=== PATIENT | female | born 1950 | race Two or more races ===

== ENCOUNTER 2020-09-09 20:18 | Inpatient (IN) | payer MEDICARE, OTHER ==
[~2020-09-09] VITALS: Ht 154.9 cm; Wt 63.0 kg
--- NOTE | 2020-09-09 21:15 | NUR ---
GPS/MANAGER DATA CENTER NOTES: RECEIVED 70 YR. OLD FEMALE ON A 5150 HOLD FOR DTS. PT. A/0 X3. UNCOOPERATIVE. PT. ORIENTED TO UNIT POLICIES, PROTOCOLS AND PROCEDURES. BELONGINGS COUNTED AND LOCKED IN PT. CABINET. NO CONTRABAND FOUND WITH PT. CALL SAGE WITHIN REACH, BED ALARM ON, AND SAFETY ENVIRONMENT OBSERVED. MEDICAL AND PSYCH NOTIFIED OF PT. ADMISSION. WILL CONTINUE TO MONITOR Q 15 MIN FOR SAFETY AND BEHAVIOR.
[2020-09-09] MEDS ORDERED: BLOOD SUGAR DIAGNOSTIC 1 EACH STRIP IN ONE (22:00)
[2020-09-09] MEDS ORDERED: MAGNESIUM HYDROXIDE 30 ML UDC PO PRN (22:00)
[2020-09-09] MEDS ORDERED: MAG HYDROX/AL HYDROX/SIMETH 30 ML UDC PO PRN (22:00)
[2020-09-09] MEDS ORDERED: ROBINUL PO (23:01)
[2020-09-09] MEDS ORDERED: BISA-79 RC (23:01)
[2020-09-09] MEDS ORDERED: SENN-261 PO (23:01)
[2020-09-09] MEDS ORDERED: FERR325T23 PO (23:01)
[2020-09-09] MEDS ORDERED: HYDR-3980 PO (23:01)
[2020-09-09] MEDS ORDERED: LINA290C PO (23:01)
[2020-09-09] MEDS ORDERED: APIX5TAB PO (23:01)
[2020-09-09] MEDS ORDERED: INSU100C10 SQ (23:01)
[2020-09-09] MEDS ORDERED: ENTA200T PO (23:01)
[2020-09-09] MEDS ORDERED: QUET100T PO (23:01)
[2020-09-09] MEDS ORDERED: CARB-300 PO (23:01)
[2020-09-09] MEDS ORDERED: ASCO500T21 PO (23:01)
[2020-09-09] MEDS ORDERED: HYDR-4209 PO (23:01)
[2020-09-09] MEDS ORDERED: NEUPRO (23:01)
[2020-09-09] MEDS ORDERED: FAMO20TA8 PO (23:01)
[2020-09-09] MEDS ORDERED: PREG50CA PO (23:01)
[2020-09-09] MEDS ORDERED: MULT-619 PO (23:01)
[2020-09-09] MEDS ORDERED: ONDA4TAB5 PO (23:01)
[2020-09-09] MEDS ORDERED: DOCU-141 PO (23:01)
[2020-09-09] MEDS ORDERED: ATOR40TA PO (23:01)
[2020-09-09] MEDS ORDERED: APOM10CA7 SQ (23:01)
[2020-09-09] MEDS ORDERED: NPH,100V SQ (23:01)
[2020-09-09] MEDS ORDERED: LISI10TA29 PO (23:01)
[2020-09-09] MEDS ORDERED: DEXTROSE 50%-WATER 50 ML DISP.SYRIN IV PRN (23:30)
[2020-09-09] MEDS ORDERED: BISACODYL (5 MG) 5 MG TABLET.DR PO PRN (23:30)
[2020-09-09] MEDS ORDERED: Medication Not On Formulary EA (Linaclotide (Linzess) 290 MCG) PO SCH (23:30)
[2020-09-09] MEDS ORDERED: DOCUSATE SODIUM 100 MG CAPSULE PO PRN (23:30)
[2020-09-10 00:46] VITALS: BP 113/59
[2020-09-10] MEDS: TEMAZEPAM 7.5 MG CAPSULE PO PRN (01:16)
[2020-09-10] MEDS: LORAZEPAM 0.5 MG TABLET PO PRN ×2 (04:51→12:18)
--- NOTE | 2020-09-10 04:54 | NUR ---
GPS-RN NOTES: ANXIETY PATIENT IS ANXIOUS AND RESTLESS. PRN ATIVAN 0.5MG PO GIVEN. WILL CONTINUE TO MONITOR.
[2020-09-10 07:29] LABS: ALBUMIN 3.4 g/dL (3.4-5.0); BILIRUBIN,TOTAL 0.6 mg/dL (0.2-1.0); CALCIUM, SERUM 9.4 mg/dL (8.5-10.1); CREATININE 0.5 mg/dL (0.6-1.3); POTASSIUM 4.2 mmol/L (3.5-5.1); TOTAL PROTEIN, SERUM 7.5 g/dL (6.4-8.2)
[2020-09-10 07:31] LABS: CHOLESTEROL 120 mg/dL (<200); HDL CHOLESTEROL 46 mg/dL (40-60); LDL 54 mg/dL (0-99); TRIGLYCERIDES 102 mg/dL (30-150)
[2020-09-10] MEDS: BLOOD SUGAR DIAGNOSTIC 1 EACH STRIP VI SCH ×4 (07:46→22:00)
[2020-09-10 08:00] VITALS: BP 115/59
[2020-09-10] MEDS: ENTACAPONE 200 MG TABLET PO SCH ×3 (08:29→16:09)
[2020-09-10] MEDS: SENNOSIDES 8.6 MG TABLET PO SCH ×2 (08:29→21:09)
[2020-09-10] MEDS: FAMOTIDINE (20 MG) 20 MG TABLET PO SCH ×2 (08:31→16:08)
[2020-09-10] MEDS: FERROUS SULFATE (325 MG) 325 MG/TAB TABLET PO SCH (08:31)
[2020-09-10] MEDS: MULTIVIT W/MINERALS 1 TAB TABLET PO SCH (08:31)
[2020-09-10] MEDS: PREGABALIN 25 MG CAPSULE PO SCH (08:31)
[2020-09-10] MEDS: CARBIDOPA/LEVODOPA 25/100 MG 1 UDTAB PO SCH ×3 (08:32→16:08)
[2020-09-10] MEDS: LISINOPRIL (10MG) 10 MG TABLET PO SCH (08:32)
[2020-09-10] MEDS: INSULIN REGULAR, HUMAN 100 UNIT/ML 3 ML VIAL SQ PRN ×3 (08:35→17:20)
[2020-09-10] MEDS: APIXABAN 5 MG TABLET PO SCH ×2 (08:35→16:09)
[2020-09-10] MEDS: ASCORBIC ACID 500 MG TABLET PO SCH (08:37)
--- NOTE | 2020-09-10 12:30 | NUR ---
RN NOTE- patient is anxious and restless, Ativan given PRN.
[2020-09-10 16:00] VITALS: BP 107/72
[2020-09-10] MEDS: busPIRone 5 MG TABLET PO SCH (16:08)
[2020-09-10] MEDS: DULOXETINE HCL 30 MG CAPSULE.DR PO SCH (16:12)
[2020-09-10 20:56] VITALS: BP 138/83
[2020-09-10] MEDS: MIRTAZAPINE 15 MG TABLET PO SCH (21:09)
[2020-09-10] MEDS: ATORVASTATIN 40 MG TABLET PO SCH (21:57)
[2020-09-10] MEDS: *INSULIN REGULAR(HUMULIN R)HUM 100 UNIT/ML VIAL SQ PRN (22:11)
--- NOTE | 2020-09-10 22:17 | NUR ---
GPS RN NOTES PATIENT BLOOD SUGAR 155. GIVEN 2 UNITS OF NSULIN PER SLIDING SCALE. SNACK PROVIDED. WILL CONTINUE TO MONITOR.
[2020-09-11] MEDS: HYDROCODONE/APAP 5/325MG TABLET PO PRN ×3 (06:00→20:48)
--- NOTE | 2020-09-11 06:03 | NUR ---
GPS RN NOTES PATIENT C/O PAIN 10/10 AT LATERAL HIP/THIGH, SURGERY LOCATION. GIVEN NORCO AT THIS TIME PRN.
[2020-09-11] MEDS: BLOOD SUGAR DIAGNOSTIC 1 EACH STRIP VI SCH ×4 (06:40→22:08)
--- NOTE | 2020-09-11 06:41 | NUR ---
GPS RN NOTES PATIENT BS 115 THIS AM. WILL ENDORSE TO MORNING RN. NO INSULIN GIVEN.
[2020-09-11] MEDS: LORAZEPAM 0.5 MG TABLET PO PRN ×2 (06:52→17:56)
--- NOTE | 2020-09-11 06:58 | NUR ---
GPS RN NOTE PATIENT REQUESTING ATIVAN, REPORTING FEELING ANXIOUS, RESTLESS. GIVEN ATIVAN PRN.
--- NOTE | 2020-09-11 07:02 | NUR ---
GPS RN CLOSING NOTE PATIENT IN BED, A/OX3. NO S/S OF DISTRESS. PAIN MANAGED WITH MEDICATION. ALL NEEDS ATTENDED. SCHED MEDS ADMINISTERED. SAFETY KEPT THE WHOLE SHIFT. DID NOT REPORT ANY SUICIDAL IDEATION OR HOMICIDAL IDEATION. NO SIGNIFICANT CHANGE SINCE LAST SHIFT. WILL ENDORSE CARE TO MORNING RN.
[2020-09-11 08:00] VITALS: BP 113/70
[2020-09-11] MEDS: PREGABALIN 25 MG CAPSULE PO SCH (08:08)
[2020-09-11] MEDS: SENNOSIDES 8.6 MG TABLET PO SCH ×2 (08:08→20:20)
[2020-09-11] MEDS: FERROUS SULFATE (325 MG) 325 MG/TAB TABLET PO SCH (08:08)
[2020-09-11] MEDS: ASCORBIC ACID 500 MG TABLET PO SCH (08:08)
[2020-09-11] MEDS: ENTACAPONE 200 MG TABLET PO SCH ×2 (08:08→13:01)
[2020-09-11] MEDS: FAMOTIDINE (20 MG) 20 MG TABLET PO SCH ×2 (08:09→16:28)
[2020-09-11] MEDS: LISINOPRIL (10MG) 10 MG TABLET PO SCH (08:09)
[2020-09-11] MEDS: APIXABAN 5 MG TABLET PO SCH ×2 (08:10→16:34)
[2020-09-11] MEDS: busPIRone 5 MG TABLET PO SCH ×2 (08:32→16:27)
[2020-09-11] MEDS: MULTIVIT W/MINERALS 1 TAB TABLET PO SCH (08:32)
[2020-09-11] MEDS: CARBIDOPA/LEVODOPA 25/100 MG 1 UDTAB PO SCH ×3 (08:32→16:28)
--- NOTE | 2020-09-11 11:54 | NUR ---
WOUND CARE CONSULT: PT PRESENTS WITH SACRAL SCAR AND SURGICAL SCARRING TO RTHIP/THIGH AREA, PRESENT ON ADMISSION. PT IS AMBULATORY WITH ASSISTANCE.RECOMMENDATIONS MADEFOR SKIN PROTECTION. DISCUSSED WITH NURSING STAFF. IN AGREEMENT WITH PLAN OF CARE. Addendum: 09/11/20 at 1155 by RYLAN JOEL RN Amended: Links added. Addendum: 09/11/20 at 1157 by SABRINA LEWIS WNDNU ABOVE WOUND CARE CONSULT WAS DONE BY SABRINA LEWIS RN (WOUND CARE NURSE)
--- NOTE | 2020-09-11 15:46 | NUR ---
Family contact: SW called pts sister Britney Greene ([phone]) regarding pts discharge plan. Pts sister would like pt to be discharged to the convalescent home the clt is currently living at [facility] on [address] [place] [address] ([phone]).
--- NOTE | 2020-09-11 15:56 | NUR ---
Initial discharge plan: Pt is currently living in a convalescent home located on [facility] on [address] [place] [phone] ([phone]). SW will work with the pt and the MD regarding appropriate discharge planning. SW will form a safe and proper discharge.
[2020-09-11 16:00] VITALS: BP 133/68
[2020-09-11] MEDS: DULOXETINE HCL 30 MG CAPSULE.DR PO SCH (16:28)
[2020-09-11] MEDS: *INSULIN REGULAR(HUMULIN R)HUM 100 UNIT/ML VIAL SQ PRN ×2 (18:00→21:10)
--- NOTE | 2020-09-11 20:00 | NUR ---
RN NOTES ALERT/ORIENTED X2, ROOM AIR, ANXIOUS, FALL RISK, S/P RIGHT HIP SURGERY, INCISION INTACT. WITH PARKINSON;S DISEASE, EXAGGERATES LEG MOVEMENT WHEN RN AROUND AND STOPS WHEN ALONE. KEPT SAFE, WILL CONTINUE TO MONITOR.
[2020-09-11] MEDS: MIRTAZAPINE 15 MG TABLET PO SCH (20:20)
[2020-09-11 20:34] VITALS: BP 133/88
--- NOTE | 2020-09-11 20:48 | NUR ---
GPS RN NOTE, PATIENT HAS A COMPLAINT OF CHRONIC RIGHT LEG PAIN AT 7 OUT 10 ON THE PAIN SCALE AND IS REQUESTING NORCO AT THIS TIME. PATIENT VITAL SIGNS ARE STABLE. GAVE NORCO 5 - 325 1 TAB PO Q6HR PRN ORDERED. WILL REASSESS PAIN AND I WILL CONTINUE TO MONITOR THIS PATIENT WITH THE HELP OF STAFF.
[2020-09-11] MEDS: ATORVASTATIN 40 MG TABLET PO SCH (21:05)
[2020-09-11] MEDS: TEMAZEPAM 7.5 MG CAPSULE PO PRN (22:19)
[2020-09-12] MEDS: BLOOD SUGAR DIAGNOSTIC 1 EACH STRIP VI SCH ×4 (06:33→21:28)
[2020-09-12] MEDS: INSULIN REGULAR, HUMAN 100 UNIT/ML 3 ML VIAL SQ PRN ×2 (06:34→13:13)
[2020-09-12 08:00] VITALS: BP 118/63
[2020-09-12] MEDS: FAMOTIDINE (20 MG) 20 MG TABLET PO SCH ×2 (08:03→17:41)
[2020-09-12] MEDS: APIXABAN 5 MG TABLET PO SCH ×2 (08:03→17:46)
[2020-09-12] MEDS: FERROUS SULFATE (325 MG) 325 MG/TAB TABLET PO SCH (08:04)
[2020-09-12] MEDS: MULTIVIT W/MINERALS 1 TAB TABLET PO SCH (08:04)
[2020-09-12] MEDS: SENNOSIDES 8.6 MG TABLET PO SCH ×2 (08:04→21:15)
[2020-09-12] MEDS: LISINOPRIL (10MG) 10 MG TABLET PO SCH (08:04)
[2020-09-12] MEDS: ASCORBIC ACID 500 MG TABLET PO SCH (08:04)
[2020-09-12] MEDS: busPIRone 5 MG TABLET PO SCH ×2 (08:04→17:41)
[2020-09-12] MEDS: CARBIDOPA/LEVODOPA 25/100 MG 1 UDTAB PO SCH ×3 (08:04→17:41)
[2020-09-12] MEDS: Z GUARD REMEDY 2 OZ OINT TP SCH (08:05)
[2020-09-12] MEDS: LORAZEPAM 0.5 MG TABLET PO PRN ×2 (10:08→22:35)
[2020-09-12 16:00] VITALS: BP 99/63
[2020-09-12] MEDS: DULOXETINE HCL 30 MG CAPSULE.DR PO SCH (17:41)
[2020-09-12] MEDS: ENTACAPONE 200 MG TABLET PO SCH (17:42)
[2020-09-12 20:26] VITALS: BP 124/64
[2020-09-12] MEDS: MIRTAZAPINE 15 MG TABLET PO SCH (21:15)
[2020-09-12] MEDS: ATORVASTATIN 40 MG TABLET PO SCH (21:28)
--- NOTE | 2020-09-12 21:54 | NUR ---
RN NOTE PATIENT'S BLOOD SUGAR IS 125 MG/DL, NO SSI COVERAGE NEEDED AT THIS TIME. WILL CONTINUE TO MONITOR. PATIENT IS TAKING GOOD PO INTAKE & TOLERATING WELL.
--- NOTE | 2020-09-12 22:36 | NUR ---
RN NOTE: ANXIETY PATIENT STATED, SHE IS FEELING ANXIOUS, NOTED TO BE RESTLESS WELL. PATIENT REQUESTED TO TAKE ATIVAN AT THIS TIME. PRN ATIVAN 0.5 MG 1 TAB PO ADMINISTERED. WILL CONTINUE TO MONITOR.
[2020-09-13 08:00] VITALS: BP 115/67
[2020-09-13] MEDS: BLOOD SUGAR DIAGNOSTIC 1 EACH STRIP VI SCH ×4 (08:13→22:14)
[2020-09-13] MEDS: APIXABAN 5 MG TABLET PO SCH ×2 (08:35→17:13)
[2020-09-13] MEDS: INSULIN REGULAR, HUMAN 100 UNIT/ML 3 ML VIAL SQ PRN ×2 (08:36→12:08)
[2020-09-13] MEDS: SENNOSIDES 8.6 MG TABLET PO SCH ×2 (08:38→21:21)
[2020-09-13] MEDS: busPIRone 5 MG TABLET PO SCH ×2 (08:38→17:10)
[2020-09-13] MEDS: ENTACAPONE 200 MG TABLET PO SCH ×3 (08:38→17:10)
[2020-09-13] MEDS: CARBIDOPA/LEVODOPA 25/100 MG 1 UDTAB PO SCH ×3 (08:38→17:11)
[2020-09-13] MEDS: FERROUS SULFATE (325 MG) 325 MG/TAB TABLET PO SCH (08:39)
[2020-09-13] MEDS: FAMOTIDINE (20 MG) 20 MG TABLET PO SCH ×2 (08:39→17:10)
[2020-09-13] MEDS: LISINOPRIL (10MG) 10 MG TABLET PO SCH (08:39)
[2020-09-13] MEDS: MULTIVIT W/MINERALS 1 TAB TABLET PO SCH (08:39)
[2020-09-13] MEDS: ASCORBIC ACID 500 MG TABLET PO SCH (08:39)
[2020-09-13] MEDS: Z GUARD REMEDY 2 OZ OINT TP SCH (08:40)
[2020-09-13 16:00] VITALS: BP 108/54
[2020-09-13] MEDS: DULOXETINE HCL 30 MG CAPSULE.DR PO SCH (17:10)
[2020-09-13 20:10] VITALS: BP 107/60
[2020-09-13 21:00] VITALS: BP 107/60
[2020-09-13] MEDS: MIRTAZAPINE 15 MG TABLET PO SCH (21:22)
[2020-09-13] MEDS: ATORVASTATIN 40 MG TABLET PO SCH (21:36)
[2020-09-13 21:50] VITALS: BP 111/63
[2020-09-13] MEDS: *INSULIN REGULAR(HUMULIN R)HUM 100 UNIT/ML VIAL SQ PRN (22:16)
[2020-09-14] MEDS: BLOOD SUGAR DIAGNOSTIC 1 EACH STRIP VI SCH ×4 (07:28→22:32)
[2020-09-14 08:00] VITALS: BP 132/77
[2020-09-14] MEDS: LISINOPRIL (10MG) 10 MG TABLET PO SCH (08:30)
[2020-09-14] MEDS: MULTIVIT W/MINERALS 1 TAB TABLET PO SCH (08:30)
[2020-09-14] MEDS: SENNOSIDES 8.6 MG TABLET PO SCH ×2 (08:30→21:10)
[2020-09-14] MEDS: ENTACAPONE 200 MG TABLET PO SCH ×3 (08:30→16:25)
[2020-09-14] MEDS: busPIRone 5 MG TABLET PO SCH ×2 (08:30→16:26)
[2020-09-14] MEDS: CARBIDOPA/LEVODOPA 25/100 MG 1 UDTAB PO SCH ×3 (08:31→16:26)
[2020-09-14] MEDS: FERROUS SULFATE (325 MG) 325 MG/TAB TABLET PO SCH (08:31)
[2020-09-14] MEDS: FAMOTIDINE (20 MG) 20 MG TABLET PO SCH ×2 (08:31→16:25)
[2020-09-14] MEDS: ASCORBIC ACID 500 MG TABLET PO SCH (08:31)
[2020-09-14] MEDS: APIXABAN 5 MG TABLET PO SCH ×2 (08:32→16:26)
[2020-09-14] MEDS: Z GUARD REMEDY 2 OZ OINT TP SCH (08:33)
--- NOTE | 2020-09-14 09:00 | NUR ---
RN NOTE- PT W SLOW SPEECH, SLOW TO RESPOND, DENIES SI HI AH VH, MED COMPLIANT, DIRECTABLE, CALM
[2020-09-14] MEDS: ARIPIPRAZOLE 2 MG TABLET PO SCH (12:08)
[2020-09-14] MEDS: INSULIN REGULAR, HUMAN 100 UNIT/ML 3 ML VIAL SQ PRN ×2 (12:26→17:23)
[2020-09-14] MEDS: LORAZEPAM 0.5 MG TABLET PO PRN (15:01)
--- NOTE | 2020-09-14 15:03 | NUR ---
RN NOTE- PT W REPORTED ANXIETY, DIFFICULTY BREATHING (CLINICAL HAEMATOLOGIST REPORT). PT VS STABLE- BP- 141/61, HR- 89. RR- 18, SATURATION 100% RA. LUNGS CLEAR. PT W TREMULOUSNESS RELATED TO PARKINSONS. ANXIETY PRESENT. ATIVAN 0.5 MG GIVEN. CONTINUE TO MONITOR
[2020-09-14 16:00] VITALS: BP 144/61
[2020-09-14] MEDS: DULOXETINE HCL 30 MG CAPSULE.DR PO SCH (16:26)
[2020-09-14 20:09] VITALS: BP 90/48
[2020-09-14] MEDS: MIRTAZAPINE 15 MG TABLET PO SCH (21:00)
[2020-09-14 21:15] VITALS: BP 95/54
--- NOTE | 2020-09-14 21:48 | NUR ---
RN NOTE: HELD REMERON AT 2100 PATIENT'S NOTED WITH DECREASED BP 95/54, 83, 20, 97.6, 97% AT RA. HELD REMERON 15 MG AT 2100 TO PREVENT HYPOTENSION. ENCOURAGED PO FLUIDS & SNACKS TOLERATED. WILL CONTINUE TO MONITOR CLOSELY FOR ANY KAREN.
[2020-09-14] MEDS: ATORVASTATIN 40 MG TABLET PO SCH (22:32)
[2020-09-14] MEDS: *INSULIN REGULAR(HUMULIN R)HUM 100 UNIT/ML VIAL SQ PRN (22:37)
[2020-09-15] MEDS: ACETAMINOPHEN 325 MG TABLET PO PRN (03:54)
--- NOTE | 2020-09-15 03:59 | NUR ---
RN NOTE: PRN TYLENOL GIVEN PATIENT C/O HEADACHE & WANTED TO TAKE PAIN MEDICINE. PRN TYLENOL 650 MG PO ADMINISTERED. WILL CONTINUE TO MONITOR FOR ANY CHANGE OF CONDITION.
[2020-09-15] MEDS: BLOOD SUGAR DIAGNOSTIC 1 EACH STRIP VI SCH ×4 (07:35→21:59)
[2020-09-15] MEDS: INSULIN REGULAR, HUMAN 100 UNIT/ML 3 ML VIAL SQ PRN ×3 (07:53→17:19)
[2020-09-15 08:00] VITALS: BP 110/60
[2020-09-15] MEDS: SENNOSIDES 8.6 MG TABLET PO SCH ×2 (08:14→21:48)
[2020-09-15] MEDS: MULTIVIT W/MINERALS 1 TAB TABLET PO SCH (08:14)
[2020-09-15] MEDS: FAMOTIDINE (20 MG) 20 MG TABLET PO SCH ×2 (08:14→16:49)
[2020-09-15] MEDS: CARBIDOPA/LEVODOPA 25/100 MG 1 UDTAB PO SCH ×3 (08:14→16:49)
[2020-09-15] MEDS: busPIRone 5 MG TABLET PO SCH ×2 (08:14→16:49)
[2020-09-15] MEDS: ENTACAPONE 200 MG TABLET PO SCH ×3 (08:14→16:49)
[2020-09-15] MEDS: ARIPIPRAZOLE 2 MG TABLET PO SCH (08:14)
[2020-09-15] MEDS: ASCORBIC ACID 500 MG TABLET PO SCH (08:14)
[2020-09-15] MEDS: APIXABAN 5 MG TABLET PO SCH ×2 (08:15→16:50)
[2020-09-15] MEDS: Z GUARD REMEDY 2 OZ OINT TP SCH (08:15)
[2020-09-15] MEDS: FERROUS SULFATE (325 MG) 325 MG/TAB TABLET PO SCH (08:15)
[2020-09-15] MEDS: LISINOPRIL (10MG) 10 MG TABLET PO SCH (08:16)
--- NOTE | 2020-09-15 09:00 | NUR ---
RN NOTE- NO CHANGES SLOW TO RESPOND, DENIES SI HI AH VH, MED COMPLIANT, DIRECTABLE, CALM
--- NOTE | 2020-09-15 14:55 | NUR ---
Probable Cause Hearing: Pts [phone] hold was upheld for grave disability and danger to herself.
[2020-09-15] MEDS: LORAZEPAM 0.5 MG TABLET PO PRN ×2 (15:13→23:18)
--- NOTE | 2020-09-15 15:13 | NUR ---
RN NOTE- ANXIETY, RESTLESSNESS. ATIVAN 0.5 MG GIVEN
[2020-09-15 16:00] VITALS: BP 106/56
[2020-09-15] MEDS: DULOXETINE HCL 30 MG CAPSULE.DR PO SCH (16:49)
[2020-09-15] MEDS: HYDROCODONE/APAP 5/325MG TABLET PO PRN (18:23)
[2020-09-15 20:26] VITALS: BP 102/63
[2020-09-15] MEDS: ATORVASTATIN 40 MG TABLET PO SCH (21:48)
[2020-09-15] MEDS: MIRTAZAPINE 15 MG TABLET PO SCH (21:48)
[2020-09-15] MEDS: *INSULIN REGULAR(HUMULIN R)HUM 100 UNIT/ML VIAL SQ PRN (22:01)
--- NOTE | 2020-09-15 23:18 | NUR ---
RN NOTE ADMINISTERED PRN ATIVAN 0.5 MG PER PATIENT REQUEST. PATIENT DOES SEEM ANXIOUS AT THIS TIME. WILL CONTINUE TO MONITOR THROUGHOUT SHIFT.
[2020-09-16] MEDS: BLOOD SUGAR DIAGNOSTIC 1 EACH STRIP VI SCH ×4 (07:30→21:59)
[2020-09-16 08:00] VITALS: BP 140/71
[2020-09-16] MEDS: CARBIDOPA/LEVODOPA 25/100 MG 1 UDTAB PO SCH ×3 (09:08→17:00)
[2020-09-16] MEDS: FAMOTIDINE (20 MG) 20 MG TABLET PO SCH ×2 (09:08→17:00)
[2020-09-16] MEDS: FERROUS SULFATE (325 MG) 325 MG/TAB TABLET PO SCH (09:08)
[2020-09-16] MEDS: MULTIVIT W/MINERALS 1 TAB TABLET PO SCH (09:09)
[2020-09-16] MEDS: ASCORBIC ACID 500 MG TABLET PO SCH (09:09)
[2020-09-16] MEDS: LISINOPRIL (10MG) 10 MG TABLET PO SCH (09:09)
[2020-09-16] MEDS: ARIPIPRAZOLE 2 MG TABLET PO SCH (09:10)
[2020-09-16] MEDS: ENTACAPONE 200 MG TABLET PO SCH ×3 (09:10→17:00)
[2020-09-16] MEDS: APIXABAN 5 MG TABLET PO SCH ×2 (09:10→17:00)
[2020-09-16] MEDS: busPIRone 5 MG TABLET PO SCH ×2 (09:10→17:00)
[2020-09-16] MEDS: Z GUARD REMEDY 2 OZ OINT TP SCH (09:11)
[2020-09-16] MEDS: SENNOSIDES 8.6 MG TABLET PO SCH ×2 (09:15→21:05)
[2020-09-16] MEDS: INSULIN REGULAR, HUMAN 100 UNIT/ML 3 ML VIAL SQ PRN ×2 (11:56→18:16)
[2020-09-16] MEDS: LORAZEPAM 0.5 MG TABLET PO PRN (13:44)
--- NOTE | 2020-09-16 13:44 | NUR ---
RN NOTE:PATIENT C/O ANXIETY MEDICATED WITH ATIVAN 0.5MG X1, WILL CONTINUE TO MONITOR .
--- NOTE | 2020-09-16 14:06 | NUR ---
Point of contact: LELIA received a call form pts son Ray Lujan ([phone]). LELIA informed pts son that there is not discharge date. LELIA informed pts son that the discharge plan is to discharge pt back to [facility] on [address] [place] [address] ([phone]). LELIA will keep pts son updated about discharge plan.
--- NOTE | 2020-09-16 14:06 | NUR ---
[facility] contact: LELIA called [facility] on [address] [facility], [place] [address] ([phone]) to discuss pts discharge plan. SW was transferred to admissions and no one answered the phone. LELIA was unable to leave a voicemail. LELIA will follow up with [facility] at a later time.
[2020-09-16 16:09] VITALS: BP 122/65
[2020-09-16] MEDS: DULOXETINE HCL 30 MG CAPSULE.DR PO SCH (17:00)
[2020-09-16] MEDS: *INSULIN REGULAR(HUMULIN R)HUM 100 UNIT/ML VIAL SQ PRN (18:19)
[2020-09-16 20:04] VITALS: BP 106/55
[2020-09-16] MEDS: ATORVASTATIN 40 MG TABLET PO SCH (21:05)
[2020-09-16] MEDS: MIRTAZAPINE 15 MG TABLET PO SCH (21:05)
--- NOTE | 2020-09-16 21:29 | NUR ---
GPS-RN NOTES: PATIENT BLOOD SUGAR WAS 51MG/DL AT 2107. ORANGE JUICE GIVEN, PATIENT TOLERATED WELL. RECHECKED BLOOD SUGAR AT 2128. IT WENT UP TO 71MG/DL. NO S/SX OF HYPOGLYCEMIA NOTED. PATIENT IS ALERT AND ORIENTED. WILL CONTINUE TO MONITOR. Addendum: 09/17/20 at 0211 by ANAHY AUGUSTINE RN ELECTRIC SIGN ASSEMBLER JORDAN AWARE WELL CHARGE NURSE.
[2020-09-17] MEDS: BLOOD SUGAR DIAGNOSTIC 1 EACH STRIP VI SCH ×4 (07:39→21:17)
[2020-09-17] MEDS: INSULIN REGULAR, HUMAN 100 UNIT/ML 3 ML VIAL SQ PRN ×2 (07:41→11:19)
[2020-09-17 08:00] VITALS: BP 129/65
[2020-09-17] MEDS: ARIPIPRAZOLE 2 MG TABLET PO SCH (08:26)
[2020-09-17] MEDS: MULTIVIT W/MINERALS 1 TAB TABLET PO SCH (08:26)
[2020-09-17] MEDS: FAMOTIDINE (20 MG) 20 MG TABLET PO SCH ×2 (08:26→16:39)
[2020-09-17] MEDS: ENTACAPONE 200 MG TABLET PO SCH ×3 (08:27→16:39)
[2020-09-17] MEDS: ASCORBIC ACID 500 MG TABLET PO SCH (08:27)
[2020-09-17] MEDS: FERROUS SULFATE (325 MG) 325 MG/TAB TABLET PO SCH (08:27)
[2020-09-17] MEDS: busPIRone 5 MG TABLET PO SCH ×2 (08:27→16:39)
[2020-09-17] MEDS: CARBIDOPA/LEVODOPA 25/100 MG 1 UDTAB PO SCH ×5 (08:27→21:12)
[2020-09-17] MEDS: Z GUARD REMEDY 2 OZ OINT TP SCH (08:27)
[2020-09-17] MEDS: LISINOPRIL (10MG) 10 MG TABLET PO SCH (08:27)
[2020-09-17] MEDS: SENNOSIDES 8.6 MG TABLET PO SCH ×2 (08:29→21:12)
[2020-09-17] MEDS: APIXABAN 5 MG TABLET PO SCH ×2 (08:30→16:41)
--- NOTE | 2020-09-17 08:43 | NUR ---
RN NOTES CARBIDOPA/LEVODOPA 25MG/100MG AM DOSE ALREADY GIVEN PRIOR TO FREQ ADJUSTMENT BY PHARMACY.
--- NOTE | 2020-09-17 09:25 | NUR ---
[facility] contact: LELIA called [facility] on [address] [facility], [place] [address] ([phone]) and was transferred to the parking garage manager but the SW was unable to make contact. LELIA will make another attempt at a later time.
[2020-09-17] MEDS: LORAZEPAM 0.5 MG TABLET PO PRN (13:12)
--- NOTE | 2020-09-17 13:18 | NUR ---
RN NOTES PATIENT WAS SEEN BY PT TODAY FOR THERAPEUTIC EXERCISES; ASSISTED TO THE BATHROOM NEEDED.
[2020-09-17 16:00] VITALS: BP 91/52
[2020-09-17] MEDS: DULOXETINE HCL 30 MG CAPSULE.DR PO SCH (16:39)
--- NOTE | 2020-09-17 19:30 | NUR ---
GPS RN NOTE, RECEIVED PATIENT AWAKE AND IN BED, NO S/S OR COMPLAINTS OF PAIN AT THIS TIME. PATIENT IS DISPLAYING NO S/S OF APPARENT DISTRESS AT THIS TIME. PATIENT BREATHING IS UNLABORED WITH EQUAL RISE AND FALL OF THE CHEST. PATIENT IS ALERT AND ORIENTED X 1-2 ON ROOM AIR WITH A SPO2 98%. PATIENT IS COMPLIANT WITH MEDICATIONS, ANXIOUS, MAKES NEEDS KNOWN, DISORGANIZED, NEEDS REDIRECTION, AND IS COOPERATIVE. PATIENT DENIES SUICIDAL AND HOMICIDAL IDEATIONS AT THIS TIME. PATIENT ASSISTED WITH TURNING AND REPOSITIONING Q2HR AND PRN FOR COMFORT AND CIRCULATION. PATIENT HAS NO NEEDS AT THIS TIME. PATIENT EDUCATED ON THE USE OF THE CALL LIGHT. PATIENT BED SIDE RAILS UP X 2 FOR SAFETY. PATIENT BED IS LOCKED, LOW, WITH BED ALARM ON. WILL CONTINUE TO MONITOR THIS PATIENT Q15 MINUTES WITH THE HELP OF STAFF TO MAINTAIN SAFETY.
[2020-09-17 20:13] VITALS: BP 101/53
[2020-09-17] MEDS: MIRTAZAPINE 15 MG TABLET PO SCH (21:12)
[2020-09-17] MEDS: ATORVASTATIN 40 MG TABLET PO SCH (21:12)
--- NOTE | 2020-09-17 21:18 | NUR ---
GPS RN NOTE, PERFORMED ACCU CHECK ON PATIENT WITH A BLOOD SUGAR RESULT OF 190. GAVE 3 UNITS OF REGULAR INSULIN PER SLIDING SCALE. GAVE SNACK AND JUICE TO PATIENT WELL. WILL CONTINUE TO MONITOR THIS PATIENT WITH THE HELP OF STAFF.
[2020-09-17] MEDS: *INSULIN REGULAR(HUMULIN R)HUM 100 UNIT/ML VIAL SQ PRN (21:33)
[2020-09-18] MEDS: LORAZEPAM 0.5 MG TABLET PO PRN ×2 (02:52→13:51)
--- NOTE | 2020-09-18 02:52 | NUR ---
GPS RN NOTE, PATIENT HAS A COMPLAINT OF FEELING ANXIOUS AND IS REQUESTING ATIVAN AT THIS TIME. PATIENT VITAL SIGNS ARE STABLE. GAVE ATIVAN 0.5MG PO Q6HR PRN ORDERED. WILL REASSESS FOR ANXIETY AND I WILL CONTINUE TO MONITOR THIS PATIENT WITH THE HELP OF STAFF.
[2020-09-18] MEDS: BLOOD SUGAR DIAGNOSTIC 1 EACH STRIP VI SCH ×4 (07:39→21:14)
[2020-09-18] MEDS: INSULIN REGULAR, HUMAN 100 UNIT/ML 3 ML VIAL SQ PRN ×3 (07:41→17:23)
[2020-09-18 08:00] VITALS: BP 117/72
[2020-09-18] MEDS: busPIRone 5 MG TABLET PO SCH ×2 (08:55→16:11)
[2020-09-18] MEDS: FERROUS SULFATE (325 MG) 325 MG/TAB TABLET PO SCH (08:55)
[2020-09-18] MEDS: SENNOSIDES 8.6 MG TABLET PO SCH ×2 (08:55→21:14)
[2020-09-18] MEDS: FAMOTIDINE (20 MG) 20 MG TABLET PO SCH ×2 (08:55→16:12)
[2020-09-18] MEDS: MULTIVIT W/MINERALS 1 TAB TABLET PO SCH (08:56)
[2020-09-18] MEDS: ARIPIPRAZOLE 2 MG TABLET PO SCH (08:56)
[2020-09-18] MEDS: ASCORBIC ACID 500 MG TABLET PO SCH (08:56)
[2020-09-18] MEDS: CARBIDOPA/LEVODOPA 25/100 MG 1 UDTAB PO SCH ×4 (08:56→21:13)
[2020-09-18] MEDS: ENTACAPONE 200 MG TABLET PO SCH ×3 (08:56→16:10)
[2020-09-18] MEDS: APIXABAN 5 MG TABLET PO SCH ×2 (08:56→16:10)
[2020-09-18] MEDS: LISINOPRIL (10MG) 10 MG TABLET PO SCH (08:57)
--- NOTE | 2020-09-18 09:00 | NUR ---
RN NOTE- PT QUIET, SLOW TO RESPOND, MED COMPLIANT, CONFUSED , ORIENTED TO PERSON PLACE, PO INTAKE GOOD
--- NOTE | 2020-09-18 10:47 | NUR ---
[facility] contact: LELIA called [facility] on [address] [facility], [place] [address] ([phone]) and was unable to speak with admissions. LELIA will make another attempt at a later time.
[2020-09-18] MEDS: Z GUARD REMEDY 2 OZ OINT TP SCH (11:57)
--- NOTE | 2020-09-18 13:53 | NUR ---
RN NOTE- PT W ANXIETY, RESTLESSNESS. ATIVAN 0.5 MG GIVEN
[2020-09-18 15:53] VITALS: BP 99/56
[2020-09-18] MEDS: DULOXETINE HCL 30 MG CAPSULE.DR PO SCH (16:10)
[2020-09-18 20:24] VITALS: BP 108/51
[2020-09-18 20:25] VITALS: BP 108/51
[2020-09-18] MEDS: ATORVASTATIN 40 MG TABLET PO SCH (21:13)
[2020-09-18] MEDS: MIRTAZAPINE 15 MG TABLET PO SCH (21:14)
[2020-09-19] MEDS: LORAZEPAM 0.5 MG TABLET PO PRN (00:54)
[2020-09-19 08:00] VITALS: BP 135/76
[2020-09-19] MEDS: BLOOD SUGAR DIAGNOSTIC 1 EACH STRIP VI SCH ×4 (08:09→22:03)
[2020-09-19] MEDS: MULTIVIT W/MINERALS 1 TAB TABLET PO SCH (08:09)
[2020-09-19] MEDS: SENNOSIDES 8.6 MG TABLET PO SCH ×2 (08:09→21:17)
[2020-09-19] MEDS: ENTACAPONE 200 MG TABLET PO SCH ×3 (08:09→16:08)
[2020-09-19] MEDS: ASCORBIC ACID 500 MG TABLET PO SCH (08:10)
[2020-09-19] MEDS: CARBIDOPA/LEVODOPA 25/100 MG 1 UDTAB PO SCH ×4 (08:10→21:17)
[2020-09-19] MEDS: APIXABAN 5 MG TABLET PO SCH ×2 (08:11→16:07)
[2020-09-19] MEDS: LISINOPRIL (10MG) 10 MG TABLET PO SCH (08:14)
[2020-09-19] MEDS: FAMOTIDINE (20 MG) 20 MG TABLET PO SCH ×2 (08:15→16:07)
[2020-09-19] MEDS: ARIPIPRAZOLE 5 MG TABLET PO SCH (08:15)
[2020-09-19] MEDS: FERROUS SULFATE (325 MG) 325 MG/TAB TABLET PO SCH (08:15)
[2020-09-19] MEDS: busPIRone 5 MG TABLET PO SCH ×2 (08:15→16:08)
[2020-09-19] MEDS: Z GUARD REMEDY 2 OZ OINT TP SCH (08:17)
[2020-09-19] MEDS: HYDROCODONE/APAP 5/325MG TABLET PO PRN (10:43)
[2020-09-19] MEDS: INSULIN REGULAR, HUMAN 100 UNIT/ML 3 ML VIAL SQ PRN (11:44)
[2020-09-19] MEDS: DULOXETINE HCL 30 MG CAPSULE.DR PO SCH (16:08)
[2020-09-19 16:26] VITALS: BP 101/60
[2020-09-19 20:05] VITALS: BP 123/66
[2020-09-19 20:17] VITALS: BP 123/66
[2020-09-19] MEDS: MIRTAZAPINE 15 MG TABLET PO SCH (21:17)
--- NOTE | 2020-09-19 21:39 | NUR ---
RN NOTE: PATIENT'S BLOOD SUGAR LEVEL IS 116 MG/DL, NO SSI COVERAGE NEEDED AT THIS TIME. OFFERED SNACK TO THE PATIENT & TOLERATED WELL. WILL CONTINUE TO MONITOR THE PATIENT FOR ANY KAREN.
[2020-09-19] MEDS: ATORVASTATIN 40 MG TABLET PO SCH (22:03)
[2020-09-20] MEDS: BLOOD SUGAR DIAGNOSTIC 1 EACH STRIP VI SCH ×4 (07:30→21:31)
[2020-09-20 08:00] VITALS: BP 115/61
[2020-09-20] MEDS: FAMOTIDINE (20 MG) 20 MG TABLET PO SCH ×2 (09:00→17:49)
[2020-09-20] MEDS: CARBIDOPA/LEVODOPA 25/100 MG 1 UDTAB PO SCH ×4 (09:00→21:33)
[2020-09-20] MEDS: ARIPIPRAZOLE 5 MG TABLET PO SCH (09:00)
[2020-09-20] MEDS: FERROUS SULFATE (325 MG) 325 MG/TAB TABLET PO SCH (09:00)
[2020-09-20] MEDS: busPIRone 5 MG TABLET PO SCH ×2 (09:00→17:50)
[2020-09-20] MEDS: ENTACAPONE 200 MG TABLET PO SCH ×3 (09:00→17:50)
[2020-09-20] MEDS: MULTIVIT W/MINERALS 1 TAB TABLET PO SCH (09:00)
[2020-09-20] MEDS: SENNOSIDES 8.6 MG TABLET PO SCH ×2 (09:01→21:31)
[2020-09-20] MEDS: ASCORBIC ACID 500 MG TABLET PO SCH (09:01)
[2020-09-20] MEDS: LISINOPRIL (10MG) 10 MG TABLET PO SCH (09:01)
[2020-09-20] MEDS: APIXABAN 5 MG TABLET PO SCH ×2 (09:03→17:50)
[2020-09-20] MEDS: Z GUARD REMEDY 2 OZ OINT TP SCH (09:04)
[2020-09-20] MEDS: INSULIN REGULAR, HUMAN 100 UNIT/ML 3 ML VIAL SQ PRN ×3 (12:47→21:55)
[2020-09-20] MEDS: LORAZEPAM 0.5 MG TABLET PO PRN ×2 (13:21→21:59)
--- NOTE | 2020-09-20 13:22 | NUR ---
RN NOTE:PATIENT MEDICATED WITH ATIVAN0.5MG FOR ANXIETY .WILL CONTINUE TO MONITOR.
[2020-09-20 16:00] VITALS: BP 109/64
[2020-09-20] MEDS: DULOXETINE HCL 30 MG CAPSULE.DR PO SCH (17:48)
[2020-09-20 20:00] VITALS: BP 97/59
[2020-09-20] MEDS: ATORVASTATIN 40 MG TABLET PO SCH (21:31)
[2020-09-20] MEDS: MIRTAZAPINE 15 MG TABLET PO SCH (21:31)
--- NOTE | 2020-09-20 21:59 | NUR ---
PT VERBALIZES ANXIETY/AGITATION AND REQUESTS ATIVAN AT THIS TIME. PRN ATIVAN 0.5MG PRN ADMINISTERED ORDERED. WILL CONT TO MONITOR CLOSELY.
[2020-09-21] MEDS: BLOOD SUGAR DIAGNOSTIC 1 EACH STRIP VI SCH ×4 (07:21→21:53)
[2020-09-21] MEDS: INSULIN REGULAR, HUMAN 100 UNIT/ML 3 ML VIAL SQ PRN ×2 (07:22→11:46)
[2020-09-21 08:00] VITALS: BP 122/65
--- NOTE | 2020-09-21 08:23 | NUR ---
[facility] contact: LELIA called [facility] on [address] [facility], [place] [address] ([phone]) and was unable to speak with admissions. LELIA will make another attempt at a later time.
[2020-09-21] MEDS: busPIRone 5 MG TABLET PO SCH ×2 (08:37→17:41)
[2020-09-21] MEDS: ARIPIPRAZOLE 5 MG TABLET PO SCH (08:37)
[2020-09-21] MEDS: FAMOTIDINE (20 MG) 20 MG TABLET PO SCH ×2 (08:37→17:40)
[2020-09-21] MEDS: ASCORBIC ACID 500 MG TABLET PO SCH (08:37)
[2020-09-21] MEDS: ENTACAPONE 200 MG TABLET PO SCH ×3 (08:37→17:41)
[2020-09-21] MEDS: SENNOSIDES 8.6 MG TABLET PO SCH ×2 (08:37→21:52)
[2020-09-21] MEDS: APIXABAN 5 MG TABLET PO SCH ×2 (08:37→17:40)
[2020-09-21] MEDS: LISINOPRIL (10MG) 10 MG TABLET PO SCH (08:38)
[2020-09-21] MEDS: MULTIVIT W/MINERALS 1 TAB TABLET PO SCH (08:38)
[2020-09-21] MEDS: FERROUS SULFATE (325 MG) 325 MG/TAB TABLET PO SCH (08:38)
[2020-09-21] MEDS: CARBIDOPA/LEVODOPA 25/100 MG 1 UDTAB PO SCH ×4 (08:38→21:53)
[2020-09-21] MEDS: Z GUARD REMEDY 2 OZ OINT TP SCH (08:41)
--- NOTE | 2020-09-21 08:51 | NUR ---
Referral to [facility]: LELIA faxed a referral for [facility] fax #[phone].
--- NOTE | 2020-09-21 09:00 | NUR ---
RN NOTE- PT ALERT ORIENTED TO PERSON PLACE, CONFUSION. DENIES ALL. MED COMPLIANT ,
[2020-09-21] MEDS: LORAZEPAM 0.5 MG TABLET PO PRN (11:17)
--- NOTE | 2020-09-21 11:17 | NUR ---
RN NOTE- PT W ANXIETY. ATIVAN 0.5 MG GIVEN
--- NOTE | 2020-09-21 12:20 | NUR ---
RN NOTE- DECREASED ANXIETY. RX EFFECTIVE
--- NOTE | 2020-09-21 13:53 | NUR ---
Family contact: LELIA called the pts son Ray Lujan ([phone]) and informed him that the pt will be discharged to [facility] the following day and provided him with the location address.
[2020-09-21 16:00] VITALS: BP 102/51
--- NOTE | 2020-09-21 17:30 | NUR ---
RN NOTE- DR VALDES CAME TO UNIT AND ASKED ABOUT SINEMET QID DOSING. YESTERDAY HE ORDERED IT 0600, 1000, 1600, 2000. CURRENTLY BEING GIVEN ON HOSPITAL QID SCHEDULE - 0900, 1300, 1700, 2100. NOTIFIED PHARMACY . WILL START AT DR VALDES SCHEDULE TOMORROW MORNING.
[2020-09-21] MEDS: DULOXETINE HCL 30 MG CAPSULE.DR PO SCH (17:41)
[2020-09-21] MEDS: ACETAMINOPHEN 325 MG TABLET PO PRN (19:28)
[2020-09-21 20:00] VITALS: BP 103/44
[2020-09-21] MEDS: ATORVASTATIN 40 MG TABLET PO SCH (21:52)
[2020-09-21] MEDS: MIRTAZAPINE 15 MG TABLET PO SCH (21:52)
[2020-09-21] MEDS: *INSULIN REGULAR(HUMULIN R)HUM 100 UNIT/ML VIAL SQ PRN (22:05)
[2020-09-22] MEDS: LORAZEPAM 0.5 MG TABLET PO PRN ×2 (03:41→12:27)
--- NOTE | 2020-09-22 03:41 | NUR ---
RN NOTE PATIENT REPORTING ANXIETY. ATIVAN 0.5 MG GIVEN ORDERED. WILL CONTINUE TO MONITOR
[2020-09-22] MEDS: CARBIDOPA/LEVODOPA 25/100 MG 1 UDTAB PO SCH ×2 (06:03→10:36)
--- NOTE | 2020-09-22 06:32 | NUR ---
RN CLOSING NOTES PATIENT SLEEPING IN BED, NO S/S OF DISTRESS OR SOB NOTED, BREATHING EVEN AND UNLABORED. NO COMPLAINTS OF PAIN AT THIS TIME. PT DENIED SI/HI THROUGHOUT SHIFT. PATIENT COMPLIANT WITH MEDICATION. MEDICATIONS GIVEN ORDERED, MEDS CRUSHED WITH APPLESAUCE. PATIENT NEEDS MET THROUGHOUT SHIFT. SAFETY MEASURES AND ASPIRATION PRECAUTIONS IN PLACE, BED LOCKED IN LOWEST POSITION, SIDE RAILS UP X 2, HOB ELEVATED, BED ALARM ON, SAFETY CHECKS Q15 MINS THROUGHOUT SHIFT. WILL ENDORSE TO DAY SHIFT NURSE FOR CONTINUITY OF CARE
[2020-09-22] MEDS: BLOOD SUGAR DIAGNOSTIC 1 EACH STRIP VI SCH ×2 (07:52→11:49)
[2020-09-22 08:00] VITALS: BP 110/69
[2020-09-22] MEDS: busPIRone 5 MG TABLET PO SCH (08:34)
[2020-09-22] MEDS: ARIPIPRAZOLE 5 MG TABLET PO SCH (08:34)
[2020-09-22] MEDS: FAMOTIDINE (20 MG) 20 MG TABLET PO SCH (08:34)
[2020-09-22] MEDS: FERROUS SULFATE (325 MG) 325 MG/TAB TABLET PO SCH (08:34)
[2020-09-22] MEDS: SENNOSIDES 8.6 MG TABLET PO SCH (08:34)
[2020-09-22] MEDS: ENTACAPONE 200 MG TABLET PO SCH ×2 (08:34→13:16)
[2020-09-22] MEDS: MULTIVIT W/MINERALS 1 TAB TABLET PO SCH (08:34)
[2020-09-22] MEDS: ASCORBIC ACID 500 MG TABLET PO SCH (08:34)
[2020-09-22 08:35] VITALS: BP 110/69
[2020-09-22] MEDS: APIXABAN 5 MG TABLET PO SCH (08:35)
[2020-09-22] MEDS: LISINOPRIL (10MG) 10 MG TABLET PO SCH (08:35)
[2020-09-22] MEDS: Z GUARD REMEDY 2 OZ OINT TP SCH (08:40)
--- NOTE | 2020-09-22 09:00 | NUR ---
RN NOTE- PT ALERT ORIENTED TO PERSON PLACE, CONFUSION. DENIES ALL. MED COMPLIANT
--- NOTE | 2020-09-22 09:09 | NUR ---
Discharge Note: Pt will be discharged to [facility] ([facility]) located at [address] [place] [address]; ([phone]). Pt will be transported via [facility] at 1pm. Pts son, Ray Lujan ([phone]), agreed to this placement. Upon discharge, the pt appears to be in a dysphoric mood and presents with a distressed affect. Pt appears to be oriented x2 (time and self). Pt appears to be groomed and appropriately dressed. Pt appears to be ambulatory with an unsteady gait. Pt denies suicidal and homicidal ideation and denied visual and auditory hallucinations. Pt will continue to follow up with pts psychiatrist, Dr. Hearn, located at [address] [place] [address], [place] [address], [place] [address]; ) and pts leacher, Dr. Sahni, located at [address] [facility], [address] [place] [address]; . Pt was not able to sign the Choice of Vendor form due to pts psychosis. RN and SW cosigned and the form was placed in the chart. The multidisciplinary exit care form was done, printed, signed, and given to the patient.
[2020-09-22] MEDS: INSULIN REGULAR, HUMAN 100 UNIT/ML 3 ML VIAL SQ PRN (11:48)
--- NOTE | 2020-09-22 12:28 | NUR ---
RN NOTE- PT W ANXIETY AND RESTLESSNESS. ATIVAN 0.5 MG GIVEN
--- NOTE | 2020-09-22 13:50 | NUR ---
APPLICATION PROGRAMMER ANALYST NOTE: 70 YEAR OLD FEMALE DISCHARGED TO [facility] IN STABLE CONDITION. COMPLIANT WITH MEDICATIONS, COOPERATIVE WITH TREATMENT PLANS. PATIENT DENIES SI/HI AND INSTRUCTED TO GO TO THE CLOSEST ER IF DEVELOPING SI/HI. BEHAVIOR IMPROVED, PSYCHIATRIC TREATMENT PLANS MET, MEDICAL TREATMENT PLANS DEFERRED FOR CONTINUAL MONITORING. EDUCATED PT REGARDING AFTER CARE AND EXIT CARE. COPY PROVIDED. RETURNED PERSONAL BELONGINGS TO PATIENT. MEDICATIONS RECONCILED WITH DR. LITTLE AND DR. MOLINA. REPORT GIVEN TO [facility] FOR CONTINUITY OF CARE. PT UNABLE TO SIGN DISCHARGE PAPERWORK. SKIN INTACT ON ADMISSION AND DISCHARGE. PATIENT LEFT THE UNIT AT 1350 ON GURNEY WITH EMS PRESENT.
== END 2020-09-22 13:50 | DRG 885 ==
LOC: GPS 20:33
PROVIDERS: ADMIT Psychiatry & Neurology Psychosomatic Medicine; ATTEND Student in an Organized Health Care Education/Training Program
DX: F25.1 Schizoaffective disorder, depressive type (principal); I11.0 Hypertensive heart disease with heart failure; I69.351 Hemiplegia and hemiparesis following cerebral infarction affecting right dominant side; R45.851 Suicidal ideations; I50.32 Chronic diastolic (congestive) heart failure; K21.9 Gastro-esophageal reflux disease without esophagitis; E78.5 Hyperlipidemia, unspecified; E11.9 Type 2 diabetes mellitus without complications; F02.80 Dementia in other diseases classified elsewhere, unspecified severity, without behavioral disturbance, psychotic disturbance, mood disturbance, and anxiety; M19.90 Unspecified osteoarthritis, unspecified site; I25.10 Atherosclerotic heart disease of native coronary artery without angina pectoris; Z79.899 Other long term (current) drug therapy; Z86.711 Personal history of pulmonary embolism; K58.9 Irritable bowel syndrome, unspecified; Z79.4 Long term (current) use of insulin; Z79.01 Long term (current) use of anticoagulants; G20 Parkinson's disease; F39 Unspecified mood [affective] disorder; E86.0 Dehydration; F11.10 Opioid abuse, uncomplicated; F10.10 Alcohol abuse, uncomplicated; Y90.9 Presence of alcohol in blood, level not specified; D53.1 Other megaloblastic anemias, not elsewhere classified; F43.10 Post-traumatic stress disorder, unspecified; F42.9 Obsessive-compulsive disorder, unspecified; F41.0 Panic disorder [episodic paroxysmal anxiety]
CPT/HCPCS: 36415; 80053-TC; 80061-TC; 82962-TC; 97112-TC; 97116-TC; 97530-TC; J1815